=== PATIENT | male | born 1995 | race Caucasian/White ===

== ENCOUNTER 2022-08-20 11:22 | Emergency (ER) | payer SELFPAY ==
[2022-08-20] MEDS ORDERED: Ketorolac Tromethamine 30 MG/ML VIAL ONE (12:12)
== END 2022-08-20 14:17 | disposition home or self-care (01) ==
LOC: ERS 11:22
DX: R10.9 Unspecified abdominal pain (principal)
CPT/HCPCS: 76870; 93976; 96372; J1885

== ENCOUNTER 2022-11-14 17:57 | Inpatient (IN) | payer SELFPAY ==
[~2022-11-14 17:57] MED LIST: Iopamidol-370 76% 500 ML MDV (1 ML CHARGE) ONE
[2022-11-14] MEDS ORDERED: methylPREDNISolone Sod Succ/PF 125 MG/2 ML VIAL ONE (18:22)
[2022-11-14 18:50] LABS: #Neutrophils 10.8 thou/uL (1.40-6.50); %Basophils 0.3 % (0.0-1.0); %Eosinophils 0.1 % (0.0-10.0); %Lymphocytes 3.2 % (21.0-51.0); %Monocytes 0.4 % (0.0-10.0); %Neutrophils 95.2 % (42.0-75.0); Hematocrit 46.9 % (42.0-52.0); Hemoglobin 16.4 g/dL (14.0-18.0); Mean Corpuscular Hemoglobin 31.7 pg (27.0-31.0); Mean Corpuscular Volume 90.5 fl (78.0-98.0); Mean Platelet Volume 10.9 fL (7.4-10.4); Platelet Count 264 10x3/uL (130-400); RBC Distribution Width 12.4 % (11.5-14.5); Red Blood Cell (RBC) Count 5.18 mill/uL (4.70-6.10); White Blood Cell (WBC) Count 11.3 10x3/uL (4.8-10.8)
[2022-11-14] MEDS ORDERED: Ipratropium/Albuterol 3 ML NEB ONE (18:55)
[2022-11-14 19:14] LABS: ALT (SGPT) 33 U/L (8-55); AST (SGOT) 18 U/L (5-34); Albumin 4.7 g/dL (3.5-5.0); Alkaline Phosphatase 105 U/L (40-110); Anion Gap 18 mmol/L (10-20); BUN (Urea Nitrogen) 9 mg/dL (8.9-20.6); Bilirubin, Total 0.6 mg/dL (0.2-1.2); Calc. Creatinine Clearance 0 mL/min (70-130); Calcium 9.5 mg/dL (7.8-10.44); Carbon Dioxide 20 mmol/L (22-29); Chloride 107 mmol/L (98-107); Estimated GFR 105; Globulin 2.9 g/dL (2.4-3.5); Glucose 244 mg/dL (70-105); Magnesium 2.2 mg/dL (1.6-2.6); Protein, Total 7.6 g/dL (6.0-8.3); Sodium 141 mmol/L (136-145)
[2022-11-14 19:16] LABS: Troponin I Less than 0.010 ng/mL (< 0.028)
[2022-11-14] MEDS ORDERED: cefTRIAXone (ROCEPHIN) 2 GM VIAL ONE (19:30)
[2022-11-14 22:12] LABS: Lactic Acid 3.1 mmol/L (0.5-2.2)
[2022-11-14 22:31] LABS: Troponin I Less than 0.010 ng/mL (< 0.028)
[2022-11-14] MEDS ORDERED: Ondansetron ODT 4 MG TAB PO PRN (22:46)
[2022-11-14] MEDS ORDERED: Acetaminophen 325 MG TAB PO PRN (22:46)
[2022-11-14 23:07] LABS: Hemoglobin A1c 5.1 % (4.0-6.0)
[2022-11-14] MEDS ORDERED: Montelukast Sodium 10 mg Tablet PO SCH (23:59)
[2022-11-15 01:45] VITALS: BMI 43.0
[2022-11-15] MEDS: Ipratropium/Albuterol 3 ML NEB NEB SCH ×4 (02:37→19:06)
[2022-11-15 04:24] LABS: Troponin I Less than 0.010 ng/mL (< 0.028)
[2022-11-15 04:34] LABS: #Monocytes 0.1 thou/uL (0.11-0.59); #Neutrophils 13.1 thou/uL (1.40-6.50); %Basophils 0.1 % (0.0-1.0); %Lymphocytes 6.7 % (21.0-51.0); %Monocytes 0.8 % (0.0-10.0); %Neutrophils 91.8 % (42.0-75.0); Hematocrit 43.4 % (42.0-52.0); Hemoglobin 14.9 g/dL (14.0-18.0); Mean Corpuscular HGB CONC 34.3 g/dL (32.0-36.0); Mean Corpuscular Hemoglobin 31.5 pg (27.0-31.0); Mean Corpuscular Volume 91.8 fl (78.0-98.0); Mean Platelet Volume 11.1 fL (7.4-10.4); Platelet Count 252 10x3/uL (130-400); RBC Distribution Width 12.6 % (11.5-14.5); Red Blood Cell (RBC) Count 4.73 mill/uL (4.70-6.10); White Blood Cell (WBC) Count 14.3 10x3/uL (4.8-10.8)
[2022-11-15 05:10] LABS: Anion Gap 11 mmol/L (10-20); BUN (Urea Nitrogen) 8 mg/dL (8.9-20.6); Calc. Creatinine Clearance 272 mL/min (70-130); Calcium 9.3 mg/dL (7.8-10.44); Carbon Dioxide 23 mmol/L (22-29); Chloride 109 mmol/L (98-107); Estimated GFR 126; Glucose 193 mg/dL (70-105); Sodium 139 mmol/L (136-145)
[2022-11-15] MEDS: Budesonide 0.5 MG/2 ML NEB NEB SCH ×2 (07:26→19:07)
[2022-11-15] MEDS ORDERED: FLU VACC QS2023-24(6MOS UP)/PF 60 MCG/0.5 ML SYRINGE IM ONE (09:00)
[2022-11-15] MEDS: predniSONE 50 MG TAB PO SCH (09:29)
[2022-11-15] MEDS: Azithromycin 250 MG TAB PO SCH (09:29)
[2022-11-15] MEDS: Famotidine 20 MG TAB PO SCH ×2 (09:29→20:46)
[2022-11-15] MEDS ORDERED: Montelukast Sodium 10 mg Tablet PO SCH (21:00)
[2022-11-16] MEDS: Ipratropium/Albuterol 3 ML NEB NEB SCH ×3 (01:50→13:01)
[2022-11-16] MEDS: Budesonide 0.5 MG/2 ML NEB NEB SCH (06:06)
[2022-11-16] MEDS: predniSONE 50 MG TAB PO SCH (08:17)
[2022-11-16] MEDS: Azithromycin 250 MG TAB PO SCH (08:17)
[2022-11-16] MEDS: Famotidine 20 MG TAB PO SCH (08:17)
[2022-11-16 08:35] VITALS: BP 147/91; TEMP 98.5
== END 2022-11-16 15:40 | disposition home or self-care (01) | DRG 202 ==
LOC: ERS 17:57 → 2NO 22:07 → T4-B 11-15 13:43 → OBSVTOIN 11-15 16:21 → UNDODISIN 11-16 14:30
PROVIDERS: ADMIT Student in an Organized Health Care Education/Training Program; ATTEND Internal Medicine Critical Care Medicine
DX: J45.901 Unspecified asthma with (acute) exacerbation (principal); E87.20 Acidosis, unspecified; R73.9 Hyperglycemia, unspecified; Z88.0 Allergy status to penicillin; Z79.899 Other long term (current) drug therapy; F41.9 Anxiety disorder, unspecified
CPT/HCPCS: 36415; 71045; 71275; 80048; 83036; 83605; 83735; 84484; 85025; 87040; 93005; 94640; 96365; 96372; 96375; G0378; J0696; J1650; J2930; J7512; J7620; J7626; Q9967

== ENCOUNTER 2024-09-11 09:44 | Emergency (ER) | payer SELFPAY ==
[2024-09-11] MEDS ORDERED: Ketorolac Tromethamine 30 MG (1 mL) VIAL ONE (10:19)
== END 2024-09-11 10:25 | disposition home or self-care (01) ==
LOC: ERS 09:44
DX: M72.2 Plantar fascial fibromatosis (principal); J45.909 Unspecified asthma, uncomplicated; Z79.51 Long term (current) use of inhaled steroids
CPT/HCPCS: 96372; 99282; J1885